=== PATIENT | male | born 1945 | race Caucasian/White ===

== ENCOUNTER 2017-11-10 07:02 | Inpatient (IN) | payer OTHER ==
[2017-11-10] MEDS: ONDANSETRON 4 MG INJ IV (07:54)
[2017-11-10] MEDS: morphine 4 MG/ML VIAL IV (07:55)
[2017-11-10] MEDS: ASPIRIN 81 MG TAB PO (07:55)
[2017-11-10 08:43] LABS: ADD MAN DIFF? NO
[2017-11-10 08:54] LABS: WHITE BLOOD COUNT 4.3 10^3/ul (4.8-10.8)
[2017-11-10 08:54] LABS: BASOPHIL # 0.1 10^3/ul (0.0-0.1); BASOPHILS % 1.2 % (0.0-2.0); EOSINOPHILS # 0.2 10^3/ul (0.0-0.5); EOSINOPHILS % 3.5 % (0.0-7.0); HEMATOCRIT 34.4 % (42.0-52.0); HEMOGLOBIN 12.7 g/dl (14.0-18.0); LYMPHOCYTES # 1.3 10^3/ul (0.8-2.9); LYMPHOCYTES % 31.5 % (15.0-51.0); MEAN CORPUSCULAR HEMOGLOBIN 32.2 pg (29.0-33.0); MEAN CORPUSCULAR HGB CONC 36.9 g/dl (32.0-37.0); MEAN CORPUSCULAR VOLUME 87.1 fl (82.0-101.0); MEAN PLATELET VOLUME 10.4 fl (7.4-10.4); MONOCYTE # 0.5 10^3/ul (0.3-0.9); MONOCYTES % 10.6 % (0.0-11.0); NEUTROPHIL # 2.3 10^3/ul (1.6-7.5); PLATELET COUNT 236 10^3/UL (140-415); RED BLOOD COUNT 3.95 10^6/ul (4.70-6.10)
[2017-11-10 09:19] LABS: ALANINE AMINOTRANSFERASE 41 IU/L (13-69); ALBUMIN 4.1 g/dl (3.3-4.9); ALBUMIN/GLOBULIN RATIO 1.51; ALKALINE PHOSPHATASE 47 IU/L (42-121); ANION GAP 20 (8-16); ASPARTATE AMINO TRANSFERASE 22 IU/L (15-46); BILIRUBIN,INDIRECT 0.8 mg/dl (0-1.1); BILIRUBIN,TOTAL 0.8 mg/dl (0.2-1.3); BLOOD UREA NITROGEN 8 mg/dl (7-20); CALCIUM 8.9 mg/dl (8.4-10.2); CARBON DIOXIDE 25 mmol/L (21-31); CHLORIDE 86 mmol/L (97-110); GLUCOSE 187 mg/dl (70-220); LIPASE 72 U/L (23-300); POTASSIUM 3.7 mmol/L (3.5-5.1); SODIUM 127 mmol/L (135-144); TOTAL PROTEIN 6.8 g/dl (6.1-8.1)
[2017-11-10 09:48] LABS: TROPONIN-I < 0.012 ng/ml (0.00-0.12)
[2017-11-10] MEDS ORDERED: NITROGLYCERIN (SL) 0.4 MG TAB SL (14:00)
[2017-11-10] MEDS ORDERED: DEXTROSE 50% 50 ML SYRINGE IV ×2 (14:30)
[2017-11-10] MEDS ORDERED: GLUCAGON 1 MG INJ IM (14:30)
[2017-11-10] MEDS ORDERED: GLUCOSE GEL 15 GRAM TUBE PO ×2 (14:30)
[2017-11-10] MEDS ORDERED: GLUCOSE GEL 15 GRAM TUBE BUCCAL (14:30)
[2017-11-10] MEDS ORDERED: CILOSTAZOL 100 MG TAB PO (17:00)
[2017-11-10] MEDS ORDERED: glipiZIDE 10 MG TAB PO (17:30)
[2017-11-10] MEDS: CLOPIDOGREL 75 MG TAB PO (17:37)
[2017-11-10] MEDS: LINAGLIPTIN 5 MG TABLET PO (17:37)
[2017-11-10] MEDS: BENAZEPRIL 20 MG TAB PO (17:37)
[2017-11-10] MEDS: AMLODIPINE 10 MG TAB PO (17:37)
[2017-11-10] MEDS: ASPIRIN (EC) 81 MG TAB PO (17:37)
[2017-11-10] MEDS: NATEGLINIDE 120 MG TAB PO (17:38)
[2017-11-10 21:26] LABS: CREATINE KINASE 46 IU/L (23-200)
[2017-11-10 21:39] LABS: CK INDEX 1.4
[2017-11-10 21:45] LABS: CK-MB 0.65 ng/ml (0.0-2.4); TROPONIN-I < 0.012 ng/ml (0.00-0.12)
[2017-11-10] MEDS: CILOSTAZOL 100 MG TAB PO (21:46)
[2017-11-10] MEDS: TAMSULOSIN (SR) 0.4 MG CAP PO (21:46)
[2017-11-11 03:15] LABS: CREATINE KINASE 41 IU/L (23-200)
[2017-11-11 03:24] LABS: CK INDEX 1.1
[2017-11-11 03:38] LABS: CK-MB 0.45 ng/ml (0.0-2.4); TROPONIN-I < 0.012 ng/ml (0.00-0.12)
[2017-11-11] MEDS: NATEGLINIDE 120 MG TAB PO ×2 (07:25→18:02)
[2017-11-11 08:24] LABS: ADD MAN DIFF? NO
[2017-11-11 08:29] LABS: WHITE BLOOD COUNT 5.3 10^3/ul (4.8-10.8)
[2017-11-11 08:29] LABS: BASOPHILS % 0.8 % (0.0-2.0); EOSINOPHILS # 0.1 10^3/ul (0.0-0.5); EOSINOPHILS % 2.4 % (0.0-7.0); HEMATOCRIT 36.1 % (42.0-52.0); HEMOGLOBIN 12.8 g/dl (14.0-18.0); LYMPHOCYTES # 1.1 10^3/ul (0.8-2.9); LYMPHOCYTES % 21.4 % (15.0-51.0); MEAN CORPUSCULAR HEMOGLOBIN 31.1 pg (29.0-33.0); MEAN CORPUSCULAR HGB CONC 35.5 g/dl (32.0-37.0); MEAN CORPUSCULAR VOLUME 87.6 fl (82.0-101.0); MEAN PLATELET VOLUME 10.2 fl (7.4-10.4); MONOCYTE # 0.5 10^3/ul (0.3-0.9); NEUTROPHIL # 3.5 10^3/ul (1.6-7.5); NEUTROPHILS % 65.8 % (39.0-77.0); PLATELET COUNT 241 10^3/UL (140-415); RED BLOOD COUNT 4.12 10^6/ul (4.70-6.10); RED CELL DISTRIBUTION WIDTH 12.7 % (11.5-14.5)
[2017-11-11 08:48] LABS: ANION GAP 14 (8-16); BLOOD UREA NITROGEN 16 mg/dl (7-20); CALCIUM 9.4 mg/dl (8.4-10.2); CARBON DIOXIDE 28 mmol/L (21-31); CHLORIDE 93 mmol/L (97-110); CREATININE 0.85 mg/dl (0.61-1.24); GLUCOSE 197 mg/dl (70-220); MAGNESIUM 1.5 mg/dl (1.7-2.5); PHOSPHORUS 4.1 mg/dl (2.5-4.9); POTASSIUM 3.8 mmol/L (3.5-5.1); SODIUM 131 mmol/L (135-144)
[2017-11-11 09:05] LABS: CHOL/HDL RATIO 5.4 RATIO; HDL CHOLESTEROL 25 mg/dl (31-75); LDL CHOLESTEROL,CALCULATED 75 mg/dl; TRIGLYCERIDES 184 mg/dl (0-149)
[2017-11-11 09:05] LABS: CHOLESTEROL 137 mg/dl (100-200)
[2017-11-11] MEDS: LINAGLIPTIN 5 MG TABLET PO (09:06)
[2017-11-11] MEDS: CLOPIDOGREL 75 MG TAB PO (09:06)
[2017-11-11] MEDS: CILOSTAZOL 100 MG TAB PO ×2 (09:06→20:17)
[2017-11-11] MEDS: ASPIRIN (EC) 81 MG TAB PO (09:06)
[2017-11-11] MEDS: SPIRONOLACTONE 25 MG TAB PO (09:06)
[2017-11-11] MEDS: AMLODIPINE 10 MG TAB PO (09:07)
[2017-11-11] MEDS: METOPROLOL (XL) 50 MG TAB PO (09:07)
[2017-11-11] MEDS: BENAZEPRIL 20 MG TAB PO (09:07)
[2017-11-11] MEDS: REGADENOSON 0.4 MG/5 ML SYG (12:21)
[2017-11-11] MEDS: TAMSULOSIN (SR) 0.4 MG CAP PO (20:17)
[2017-11-11] MEDS ORDERED: VITAMIN A & D 5 GM OINT PACKET TOP (20:22)
[2017-11-12] MEDS: NATEGLINIDE 120 MG TAB PO ×2 (07:47→17:10)
[2017-11-12 08:16] LABS: ADD MAN DIFF? NO
[2017-11-12 08:21] LABS: WHITE BLOOD COUNT 5.5 10^3/ul (4.8-10.8)
[2017-11-12 08:21] LABS: BASOPHILS % 0.4 % (0.0-2.0); EOSINOPHILS # 0.1 10^3/ul (0.0-0.5); EOSINOPHILS % 2.4 % (0.0-7.0); HEMATOCRIT 35.2 % (42.0-52.0); HEMOGLOBIN 12.5 g/dl (14.0-18.0); LYMPHOCYTES # 1.5 10^3/ul (0.8-2.9); MEAN CORPUSCULAR HEMOGLOBIN 31.6 pg (29.0-33.0); MEAN CORPUSCULAR HGB CONC 35.5 g/dl (32.0-37.0); MEAN CORPUSCULAR VOLUME 89.1 fl (82.0-101.0); MONOCYTE # 0.6 10^3/ul (0.3-0.9); MONOCYTES % 10.3 % (0.0-11.0); NEUTROPHIL # 3.3 10^3/ul (1.6-7.5); NEUTROPHILS % 59.7 % (39.0-77.0); PLATELET COUNT 232 10^3/UL (140-415); RED BLOOD COUNT 3.95 10^6/ul (4.70-6.10); RED CELL DISTRIBUTION WIDTH 12.5 % (11.5-14.5)
[2017-11-12 08:38] LABS: ANION GAP 16 (8-16); BLOOD UREA NITROGEN 18 mg/dl (7-20); CALCIUM 8.6 mg/dl (8.4-10.2); CARBON DIOXIDE 24 mmol/L (21-31); CHLORIDE 93 mmol/L (97-110); CREATININE 1.01 mg/dl (0.61-1.24); GLUCOSE 255 mg/dl (70-220); POTASSIUM 3.9 mmol/L (3.5-5.1); SODIUM 129 mmol/L (135-144)
[2017-11-12] MEDS: BENAZEPRIL 20 MG TAB PO (08:49)
[2017-11-12] MEDS: CLOPIDOGREL 75 MG TAB PO (08:49)
[2017-11-12] MEDS: METOPROLOL (XL) 50 MG TAB PO (08:50)
[2017-11-12] MEDS: LINAGLIPTIN 5 MG TABLET PO (08:50)
[2017-11-12] MEDS: CILOSTAZOL 100 MG TAB PO (08:50)
[2017-11-12] MEDS: ASPIRIN (EC) 81 MG TAB PO (08:50)
[2017-11-12] MEDS: AMLODIPINE 10 MG TAB PO (08:50)
[2017-11-12] MEDS: SPIRONOLACTONE 25 MG TAB PO (08:51)
[2017-11-12] MEDS: INSULIN ASPART [NOVOLOG] 3 ML PEN SC ×2 (13:07→17:16)
[2017-11-13] MEDS ORDERED: ACCU-CHEK XX (02:00)
== END 2017-11-12 18:40 | disposition home or self-care (01) | DRG 313 ==
LOC: E/R 07:02 → TEL 10:14
DX: R07.9 Chest pain, unspecified (principal); E11.8 Type 2 diabetes mellitus with unspecified complications; D64.9 Anemia, unspecified; E87.1 Hypo-osmolality and hyponatremia; Z95.5 Presence of coronary angioplasty implant and graft; Z91.81 History of falling; I73.9 Peripheral vascular disease, unspecified; F17.210 Nicotine dependence, cigarettes, uncomplicated; Z72.89 Other problems related to lifestyle; Z85.51 Personal history of malignant neoplasm of bladder
CPT/HCPCS: 36415; 71045; 78452; 80048; 80053; 80061; 82550; 82553; 82962; 83036; 83690; 83735; 84100; 84443; 84484; 85025; 93005; 93017; 93306; 96374; 96375; 99285-25

== ENCOUNTER 2018-09-14 08:57 | Inpatient (IN) | payer OTHER ==
[2018-09-14 10:41] LABS: ADD MAN DIFF? NO
[2018-09-14 10:42] LABS: BASOPHILS % 0.4 % (0.0-2.0); EOSINOPHILS # 0.1 10^3/ul (0.0-0.5); EOSINOPHILS % 0.8 % (0.0-7.0); HEMATOCRIT 37.7 % (42.0-52.0); HEMOGLOBIN 13.3 g/dl (14.0-18.0); LYMPHOCYTES # 1.9 10^3/ul (0.8-2.9); LYMPHOCYTES % 21.7 % (15.0-51.0); MEAN CORPUSCULAR HEMOGLOBIN 29.5 pg (29.0-33.0); MEAN CORPUSCULAR HGB CONC 35.3 g/dl (32.0-37.0); MEAN CORPUSCULAR VOLUME 83.6 fl (82.0-101.0); MEAN PLATELET VOLUME 10.7 fl (7.4-10.4); MONOCYTE # 0.7 10^3/ul (0.3-0.9); MONOCYTES % 7.6 % (0.0-11.0); NEUTROPHIL # 6.2 10^3/ul (1.6-7.5); NEUTROPHILS % 69.2 % (39.0-77.0); PLATELET COUNT 267 10^3/UL (140-415); RED BLOOD COUNT 4.51 10^6/ul (4.70-6.10); RED CELL DISTRIBUTION WIDTH 12.3 % (11.5-14.5)
[2018-09-14 11:03] LABS: ALANINE AMINOTRANSFERASE 34 IU/L (13-69); ALBUMIN 4.7 g/dl (3.3-4.9); ALBUMIN/GLOBULIN RATIO 1.38; ALKALINE PHOSPHATASE 71 IU/L (42-121); ANION GAP 21 (5-13); ASPARTATE AMINO TRANSFERASE 34 IU/L (15-46); BILIRUBIN,INDIRECT 1.3 mg/dl (0-1.1); BILIRUBIN,TOTAL 1.3 mg/dl (0.2-1.3); BLOOD UREA NITROGEN 12 mg/dl (7-20); CALCIUM 9.9 mg/dl (8.4-10.2); CARBON DIOXIDE 20 mmol/L (21-31); CHLORIDE 89 mmol/L (97-110); CREATININE 0.92 mg/dl (0.61-1.24); GLUCOSE 180 mg/dl (70-220); LIPASE 164 U/L (23-300); SODIUM 130 mmol/L (135-144); TOTAL PROTEIN 8.1 g/dl (6.1-8.1)
[2018-09-14 11:14] LABS: B-TYPE NATRIURETIC PEPTIDE 93 PG/ML (0-125); TROPONIN-I < 0.012 ng/ml (0.000-0.120)
[2018-09-14] MEDS: ASPIRIN 81 MG TAB PO (11:24)
[2018-09-14] MEDS: FUROSEMIDE 40 MG INJ IV (11:24)
[2018-09-14] MEDS: INSULIN GLARGINE [LANTus] (100 UNITS/ML) SYG SC (12:30)
[2018-09-14] MEDS ORDERED: morphine 2 MG INJ IV (12:30)
[2018-09-14] MEDS ORDERED: DOCUSATE SODIUM 100 MG CAP PO (12:30)
[2018-09-14] MEDS ORDERED: NACL 0.9% 3 ML SYG IV (12:30)
[2018-09-14] MEDS ORDERED: ACETAMINOPHEN 325 MG TAB PO (12:30)
[2018-09-14] MEDS: SOD CHLORIDE 0.9% 1,000 ML IV (12:30)
[2018-09-14] MEDS ORDERED: ONDANSETRON 4 MG TAB PO (12:30)
[2018-09-14] MEDS ORDERED: NITROGLYCERIN (SL) 0.4 MG TAB SL (12:30)
[2018-09-14] MEDS: LORAZEPAM 0.5 MG TAB PO (12:31)
[2018-09-14 13:35] LABS: AMPHETAMINE/METHAMPHETAMINE Negative (NEGATIVE); BARBITURATES Negative (NEGATIVE); BENZODIAZEPINES Negative (NEGATIVE); CANNABINOIDS Negative (NEGATIVE); COCAINE Negative (NEGATIVE); OPIATES Negative (NEGATIVE)
[2018-09-14 13:36] LABS: CREATINE KINASE 108 IU/L (23-200)
[2018-09-14 13:49] LABS: CK INDEX 1.7; CK-MB 1.82 ng/ml (0.0-2.4); TROPONIN-I 0.013 ng/ml (0.000-0.120)
[2018-09-14 13:54] LABS: SODIUM,URINE RANDOM 95 mmol/L (30-90)
[2018-09-14 13:56] LABS: CREATININE 0.65 mg/dl (0.61-1.24)
[2018-09-14] MEDS ORDERED: hydrALAzine 20 MG INJ IV (14:00)
[2018-09-14] MEDS ORDERED: GLUCOSE GEL 15 GRAM TUBE BUCCAL (14:00)
[2018-09-14] MEDS ORDERED: GLUCOSE GEL 15 GRAM TUBE PO ×2 (14:00)
[2018-09-14] MEDS ORDERED: DEXTROSE 50% 50 ML SYRINGE IV ×2 (14:00)
[2018-09-14] MEDS ORDERED: GLUCAGON 1 MG INJ IM (14:00)
[2018-09-14 14:09] LABS: UR TOTAL PROTEIN (Dip) NEGATIVE (NEGATIVE)
[2018-09-14 15:38] LABS: OSMOLALITY,URINE 219 mOsm/kg (250-1200)
[2018-09-14 15:47] LABS: OSMOLALITY 270 mOsm/kg (280-295)
[2018-09-14 16:04] LABS: CREATININE,URINE RANDOM 13.82 mg/dl (20-370)
[2018-09-14 16:11] LABS: URIC ACID 3.8 mg/dl (3.1-7.9)
[2018-09-14] MEDS: INSULIN ASPART [NOVOLOG] 3 ML PEN SC ×3 (17:07→21:39)
[2018-09-14 19:50] LABS: CREATINE KINASE 117 IU/L (23-200)
[2018-09-14 20:04] LABS: CK INDEX 1.5; TROPONIN-I 0.013 ng/ml (0.000-0.120)
[2018-09-14] MEDS: TAMSULOSIN (SR) 0.4 MG CAP PO (21:36)
[2018-09-14] MEDS: FAMOTIDINE 20 MG TAB PO (21:36)
[2018-09-14] MEDS: METOPROLOL 50 MG TAB PO (21:36)
[2018-09-15] MEDS: ACCU-CHEK XX (02:00)
[2018-09-15 05:17] LABS: ADD MAN DIFF? NO
[2018-09-15 05:19] LABS: WHITE BLOOD COUNT 5.6 10^3/ul (4.8-10.8)
[2018-09-15 05:19] LABS: BASOPHILS % 0.5 % (0.0-2.0); EOSINOPHILS # 0.1 10^3/ul (0.0-0.5); EOSINOPHILS % 1.8 % (0.0-7.0); HEMATOCRIT 34.1 % (42.0-52.0); HEMOGLOBIN 11.9 g/dl (14.0-18.0); LYMPHOCYTES # 1.5 10^3/ul (0.8-2.9); LYMPHOCYTES % 26.3 % (15.0-51.0); MEAN CORPUSCULAR HEMOGLOBIN 29.2 pg (29.0-33.0); MEAN CORPUSCULAR HGB CONC 34.9 g/dl (32.0-37.0); MEAN CORPUSCULAR VOLUME 83.6 fl (82.0-101.0); MEAN PLATELET VOLUME 10.6 fl (7.4-10.4); MONOCYTE # 0.7 10^3/ul (0.3-0.9); MONOCYTES % 12.2 % (0.0-11.0); NEUTROPHIL # 3.3 10^3/ul (1.6-7.5); NEUTROPHILS % 58.8 % (39.0-77.0); PLATELET COUNT 242 10^3/UL (140-415); RED BLOOD COUNT 4.08 10^6/ul (4.70-6.10); RED CELL DISTRIBUTION WIDTH 12.2 % (11.5-14.5)
[2018-09-15 05:33] LABS: ALANINE AMINOTRANSFERASE 34 IU/L (13-69); ALBUMIN 3.9 g/dl (3.3-4.9); ALKALINE PHOSPHATASE 48 IU/L (42-121); ANION GAP 12 (5-13); ASPARTATE AMINO TRANSFERASE 23 IU/L (15-46); BILIRUBIN,INDIRECT 1.2 mg/dl (0-1.1); BILIRUBIN,TOTAL 1.2 mg/dl (0.2-1.3); BLOOD UREA NITROGEN 14 mg/dl (7-20); CALCIUM 8.9 mg/dl (8.4-10.2); CARBON DIOXIDE 26 mmol/L (21-31); CHLORIDE 92 mmol/L (97-110); CHOL/HDL RATIO 3.6 RATIO; CHOLESTEROL 90 mg/dl (100-200); CREATININE 0.82 mg/dl (0.61-1.24); GLUCOSE 170 mg/dl (70-220); HDL CHOLESTEROL 25 mg/dl (31-75); LDL CHOLESTEROL,CALCULATED 36 mg/dl; MAGNESIUM 1.4 mg/dl (1.7-2.5); PHOSPHORUS 4.2 mg/dl (2.5-4.9); POTASSIUM 4.1 mmol/L (3.5-5.1); SODIUM 130 mmol/L (135-144); TOTAL PROTEIN 6.5 g/dl (6.1-8.1); TRIGLYCERIDES 144 mg/dl (0-149)
[2018-09-15] MEDS: INSULIN ASPART [NOVOLOG] 3 ML PEN SC ×4 (07:24→12:00)
[2018-09-15] MEDS: INSULIN GLARGINE [LANTus] (100 UNITS/ML) SYG SC (07:28)
[2018-09-15 07:36] LABS: HEMOGLOBIN A1C 8.2 % (0-5.9)
[2018-09-15] MEDS ORDERED: AMLODIPINE 10 MG TAB PO (09:00)
[2018-09-15] MEDS ORDERED: SPIRONOLACTONE 50 MG TAB PO (09:00)
[2018-09-15] MEDS ORDERED: METOPROLOL (XL) 50 MG TAB PO (09:00)
[2018-09-15] MEDS ORDERED: NON-FORMULARY/PATIENT OWN MED (Ramipril 10 MG) PO (09:00)
[2018-09-15] MEDS: CLOPIDOGREL 75 MG TAB PO (09:02)
[2018-09-15] MEDS: FAMOTIDINE 20 MG TAB PO (09:02)
[2018-09-15] MEDS: CILOSTAZOL 100 MG TAB PO (09:02)
[2018-09-15] MEDS: ASPIRIN 81 MG TAB PO (09:02)
[2018-09-15] MEDS: LINAGLIPTIN 5 MG TABLET PO (09:02)
[2018-09-15] MEDS: LISINOPRIL 10 MG TAB PO (09:03)
[2018-09-15] MEDS: METOPROLOL 50 MG TAB PO (09:03)
[2018-09-15 14:30] LABS: ADD UMIC NO; UR ASCORBIC ACID NEGATIVE (NEGATIVE); UR BILIRUBIN (Dip) NEGATIVE (NEGATIVE); UR BLOOD (Dip) NEGATIVE (NEGATIVE); UR CLARITY CLEAR (CLEAR); UR COLOR YELLOW (YELLOW); UR GLUCOSE (Dip) 1+ mg/dL (NEGATIVE); UR KETONES (Dip) NEGATIVE (NEGATIVE); UR LEUKOCYTE ESTERASE (Dip) NEGATIVE Leu/ul (NEGATIVE); UR NITRITE (Dip) NEGATIVE (NEGATIVE); UR SPECIFIC GRAVITY (Dip) 1.012 (1.003-1.030); UR TOTAL PROTEIN (Dip) NEGATIVE (NEGATIVE); UR UROBILINOGEN (Dip) NEGATIVE (NEGATIVE)
[2018-09-15 14:44] LABS: SODIUM,URINE RANDOM 51 mmol/L (30-90)
[2018-09-15 14:44] LABS: CREATININE,URINE RANDOM 101.63 mg/dl (20-370)
[2018-09-15 15:17] LABS: CREATININE, RANDOM URINE 13 mg/dL (20-320); MICROALBUMIN 0.6 mg/dL; MICROALBUMIN/CREATININE RATIO 46 (<30)
[2018-09-18 14:47] LABS: CREATININE, RANDOM URINE 102 mg/dL (20-320); MICROALBUMIN 0.2 mg/dL; MICROALBUMIN/CREATININE RATIO 2 (<30)
== END 2018-09-15 14:34 | disposition home or self-care (01) | DRG 641 ==
LOC: E/R 08:57 → 6WM 12:42
DX: E87.1 Hypo-osmolality and hyponatremia (principal); I42.9 Cardiomyopathy, unspecified; R07.89 Other chest pain; I25.10 Atherosclerotic heart disease of native coronary artery without angina pectoris; D64.9 Anemia, unspecified; E78.5 Hyperlipidemia, unspecified; I10 Essential (primary) hypertension; E11.9 Type 2 diabetes mellitus without complications; I73.9 Peripheral vascular disease, unspecified; N42.9 Disorder of prostate, unspecified; F10.10 Alcohol abuse, uncomplicated; R07.2 Precordial pain; Z95.5 Presence of coronary angioplasty implant and graft; Z79.4 Long term (current) use of insulin; Z79.84 Long term (current) use of oral hypoglycemic drugs; Z79.82 Long term (current) use of aspirin
CPT/HCPCS: 36415; 71045; 80053; 80061; 80307; 81000; 81003; 82043; 82550; 82553; 82565; 82962; 83036; 83690; 83735; 83880; 83930; 83935; 84100; 84155; 84300; 84443; 84484; 84560; 85025; 93005; 93306; 93970; 96374; 99285-25